=== PATIENT | male | born 1940 | race Caucasian/White ===

== ENCOUNTER 2017-01-29 08:00 | Outpatient (CLI) | payer MEDICARE, OTHER | END 2017-01-29 08:01 | disposition home or self-care (01) | DX: I10 Essential (primary) hypertension (principal); R05 Cough; I25.10 Atherosclerotic heart disease of native coronary artery without angina pectoris; J44.9 Chronic obstructive pulmonary disease, unspecified ==

== ENCOUNTER → 2017-04-15 | Outpatient (CLI) | payer MEDICARE, OTHER ==
[2017-04-16 11:56] LABS: TEST RESULT REPORT (())
== END ==
LOC: LAB.WCP 08:00
PROVIDERS: ATTEND Family Medicine
DX: R19.7 Diarrhea, unspecified (principal)
CPT/HCPCS: 36415; 81599; 83630; 87045; 87046; 87077; 87329; 87493

== ENCOUNTER 2017-10-07 08:00 | Outpatient (CLI) | payer MEDICARE, OTHER ==
[2017-10-07 12:47] LABS: HB2 TOTAL 16.1 g/dL; HEMOGLOBIN A1C 0.61 g/dL; HEMOGLOBIN A1C % 5.6 % (4.6-6.2)
[2017-10-07 13:03] LABS: ALBUMIN/GLOBULIN RATIO 1.7 (1.0-2.2); BILIRUBIN,TOTAL 1.1 mg/dL (0.2-1.0); CALCIUM 9.3 mg/dL (8.5-10.3); CREATININE 1.1 mg/dL (0.6-1.2); TOTAL PROTEIN 6.4 g/dL (6.7-8.2)
== END 2017-10-07 08:01 | disposition home or self-care (01) ==
LOC: LAB.WCP 08:00
PROVIDERS: ATTEND Family Medicine
DX: H91.92 Unspecified hearing loss, left ear (principal); E11.9 Type 2 diabetes mellitus without complications; I25.10 Atherosclerotic heart disease of native coronary artery without angina pectoris; I10 Essential (primary) hypertension
CPT/HCPCS: 36415; 80053; 82043; 83036

== ENCOUNTER 2018-03-12 15:59 | Emergency (ER) | payer MEDICARE, OTHER ==
--- NOTE | 2018-03-12 18:14 | ED Physician Documentation ---
History of Present Illness - Stated complaint Stated Complaint: HBP - Chief complaint Chief Complaint: Cardiac - History obtained from History obtained from: Patient, Family - History of Present Illness Timing: How many weeks ago (1) Pain level max: 0 Pain level now: 0 Improved by: Nothing Worsened by: Nothing - Additonal information Additional information: Patient is a 78-year-old male who presents to the emergency department stating that his blood pressure has been higher than usual over the past week. Does not have any specific complaints other than he "just does not feel right". Denies any chest pain, shortness of breath, nausea or vomiting. Denies any changes in his vision. Denies any numbness or tingling. Review of Systems Constitutional: denies: Fever, Chills Eyes: denies: Decreased vision, Photophobia Nose: denies: Rhinorrhea / runny nose, Congestion Throat: denies: Sore throat Cardiac: denies: Chest pain / pressure, Palpitations Respiratory: denies: Dyspnea, Cough GI: denies: Nausea, Vomiting, Diarrhea Skin: denies: Rash Musculoskeletal: denies: Neck pain, Back pain Neurologic: denies: Focal weakness, Numbness, Headache PD PAST MEDICAL HISTORY - Past Medical History Past Medical History: Yes Cardiovascular: Hypertension Respiratory: COPD GI: GERD - Present Medications Home Medications: Ambulatory Orders Medication Instructions Recorded Confirmed Albuterol Sulfate [Proair Hfa 8.5 gm 03/12/18 Inhaler] Aspirin [Children's Aspirin] 81 mg PO 03/12/18 Atorvastatin [Lipitor] 0 mg 03/12/18 Carvedilol 25 mg PO BID 03/12/18 03/12/18 Fluticasone [Flonase] 03/12/18 Fluticasone [Flonase] 1 sprays CHON DAILY 03/12/18 03/12/18 Fluticasone/Salmeterol [Advair 1 each 03/12/18 500-50 Diskus] Losartan Potassium 100 mg PO DAILY 03/12/18 03/12/18 Nitroglycerin 0.4 mg SL PRN 03/12/18 Pantoprazole [Protonix] 40 mg PO 03/12/18 guaiFENesin [Mucinex] 600 mg PO BID 03/12/18 03/12/18 metFORMIN [Glucophage] 500 mg PO BID 03/12/18 03/12/18 - Allergies Allergies/Adverse Reactions: Allergies Allergy/AdvReac Type Severity Reaction Status Date / Time ibuprofen [From Motrin] Allergy Hives Verified 03/12/18 16:25 - Living Situation Living Situation: reports: With family Living Arrangement: reports: At home - Social History Does the pt have substance abuse?: No - Family History Family history: reports: Non contributory PD ED PE NORMAL - Vitals Vital signs reviewed: Yes - General General: Alert and oriented X 3, No acute distress, Well developed/nourished - HEENT HEENT: Atraumatic, PERRL, Moist mucous membranes - Neck Neck: Supple, no meningeal sign - Cardiac Cardiac: RRR, Strong equal pulses - Respiratory Respiratory: No respiratory distress, Other (Minimal wheezing bilaterally) - Abdomen Abdomen: Soft, Non tender, Non distended - Derm Derm: Warm and dry, No rash - Extremities Extremities: No edema - Neuro Neuro: Alert and oriented X 3, sterilization specialist 2-12 intact, No motor deficit, No sensory deficit, Normal speech - Psych Psych: Normal mood, Normal affect Results - Vitals Vitals: Oxygen O2 Source Room air - EKG (time done) 1806 Rate: Rate (enter#) (72) Rhythm: NSR [place]: Normal Intervals: Normal [place] QRS: Normal Ischemia: Normal ST segments Computer interpretation: Agree with computer - Labs Labs: Laboratory Tests 03/12/18 03/12/18 03/12/18 18:13 18:13 18:13 WBC 8.4 RBC 4.57 L Hgb 15.0 Hct 44.5 MCV 97.2 H MCH 32.7 H MCHC 33.7 RDW 13.7 Plt Count 180 MPV 8.8 Neut # (Auto) 4.9 Lymph # (Auto) 1.8 [place] # (Auto) 0.7 Eos # (Auto) 0.8 H Baso # (Auto) 0.1 Absolute Nucleated RBC 0.00 Nucleated RBC % 0.0 Sodium 139 Potassium 3.3 L Chloride 101 Carbon Dioxide 30 Anion Gap 8.0 BUN 15 Creatinine 1.0 Estimated GFR (MDRD) 72 L Glucose 102 H Calcium 9.3 Total Bilirubin 1.2 H AST 19 ALT 15 Alkaline Phosphatase 52 Troponin I < 0.04 Total Protein 7.0 Albumin 4.3 Globulin 2.7 Albumin/Globulin Ratio 1.6 Lipase 48 PD MEDICAL DECISION MAKING - ED course Complexity details: reviewed old records, reviewed results, re-evaluated patient , considered differential, d/w patient ED course: Patient is a 78-year-old male with a long-standing history of hypertension. Is hypertensive in the emergency department tonight, upon review of his records he has had systolic blood pressures above 170 in the emergency department in the past. He is asymptomatic here. No acute findings on EKG or laboratory testing. No evidence of endorgan damage. We will have him follow-up with his doctor for further care. We will have him keep a log of his blood pressure at home so his doctor can better adjust his medication. Patient and family counseled regarding signs and symptoms for which I believe and urgent re- evaluation would be necessary. Patient with good understanding of and agreement to plan and is comfortable going home at this time This document was made in part using voice recognition software. While efforts are made to proofread this document, sound alike and grammatical errors may occur. - Sepsis Event Vital Signs: Oxygen O2 Source Room air Departure - Departure Disposition: 01 Home, Self Care Clinical Impression: Hypertension Qualifiers: Hypertension type: unspecified Qualified Code(s): I10 - Essential (primary) hypertension Condition: Good Instructions: ED HTN Established Follow-Up: Obinna Lopez MD [Primary Care Provider] - Within 1 week Comments: Make an appointment with your doctor for adjustment of your blood pressure medications. Return if you worsen Discharge Date/Time: 03/12/18 19:10
[2018-03-12 18:19] LABS: BASOPHILS # (AUTO) 0.1 10^3/uL (0.0-0.1); EOSINOPHILS # (AUTO) 0.8 10^3/uL (0.0-0.7); EOSINOPHILS % (AUTO) 9.6 %; LYMPHOCYTES # (AUTO) 1.8 10^3/uL (1.5-3.5); LYMPHOCYTES % (AUTO) 21.8 %; MEAN CORPUSCULAR HEMOGLOBIN 32.7 pg (27.0-31.0); MEAN CORPUSCULAR HGB CONC 33.7 g/dL (32.0-36.0); MEAN CORPUSCULAR VOLUME 97.2 fL (80.0-94.0); MEAN PLATELET VOLUME 8.8 fL (7.4-11.4); MONOCYTES # (AUTO) 0.7 10^3/uL (0.0-1.0); NEUTROPHILS # (AUTO) 4.9 10^3/uL (1.5-6.6); NEUTROPHILS % (AUTO) 58.6 %; PLT - PLATELET COUNT 180 10^3/uL (130-450); RED BLOOD COUNT 4.57 10^6/uL (4.70-6.10); RED CELL DISTRIBUTION WIDTH 13.7 % (12.0-15.0); WHITE BLOOD COUNT 8.4 x10^3/uL (4.8-10.8)
[2018-03-12 18:30] LABS: ALBUMIN 4.3 g/dL (3.2-5.5); ALBUMIN/GLOBULIN RATIO 1.6 (1.0-2.2); BILIRUBIN,TOTAL 1.2 mg/dL (0.2-1.0); CALCIUM 9.3 mg/dL (8.5-10.3)
[2018-03-12 19:10] VITALS: BP 192/96
== END 2018-03-12 19:10 | disposition home or self-care (01) ==
LOC: ED 15:59
DX: I10 Essential (primary) hypertension (principal); Z79.82 Long term (current) use of aspirin
CPT/HCPCS: 36415; 80053; 83690; 84484; 85025; 93005; 99284

== ENCOUNTER 2018-04-03 09:52 | Outpatient (CLI) | payer MEDICARE, OTHER ==
[2018-04-03 13:58] LABS: BASOPHILS # (AUTO) 0.1 10^3/uL (0.0-0.1); EOSINOPHILS # (AUTO) 0.7 10^3/uL (0.0-0.7); EOSINOPHILS % (AUTO) 10.6 %; HGB - HEMOGLOBIN 14.4 g/dL (14.0-18.0); LYMPHOCYTES # (AUTO) 2.2 10^3/uL (1.5-3.5); LYMPHOCYTES % (AUTO) 34.4 %; MEAN CORPUSCULAR HEMOGLOBIN 33.4 pg (27.0-31.0); MEAN CORPUSCULAR HGB CONC 34.9 g/dL (32.0-36.0); MEAN CORPUSCULAR VOLUME 95.7 fL (80.0-94.0); MEAN PLATELET VOLUME 9.4 fL (7.4-11.4); MONOCYTES # (AUTO) 0.7 10^3/uL (0.0-1.0); MONOCYTES % (AUTO) 11.3 %; NEUTROPHILS # (AUTO) 2.7 10^3/uL (1.5-6.6); NEUTROPHILS % (AUTO) 42.7 %; PLT - PLATELET COUNT 168 10^3/uL (130-450); RED BLOOD COUNT 4.32 10^6/uL (4.70-6.10); WHITE BLOOD COUNT 6.4 x10^3/uL (4.8-10.8)
[2018-04-03 14:21] LABS: CHOL/HDL RATIO 2.5 (<5.0); CHOLESTEROL 125 mg/dL; HDL CHOLESTEROL 50 mg/dL; LDL CHOLESTEROL,CALCULATED 39 mg/dL; LDL/HDL RATIO 0.8 (<3.6); VLDL CHOLESTEROL 36 mg/dL
[2018-04-03 19:57] LABS: HB2 TOTAL 14.9 g/dL; HEMOGLOBIN A1C 0.6 g/dL; HEMOGLOBIN A1C % 5.8 % (4.6-6.2)
== END 2018-04-03 09:53 | disposition home or self-care (01) ==
LOC: LAB.WCP 09:52
PROVIDERS: ATTEND Family Medicine
DX: N40.0 Benign prostatic hyperplasia without lower urinary tract symptoms (principal); I25.10 Atherosclerotic heart disease of native coronary artery without angina pectoris; E11.9 Type 2 diabetes mellitus without complications; R73.03 Prediabetes
CPT/HCPCS: 36415; 80061; 83036; 83721; 85025

== ENCOUNTER 2018-10-12 08:00 | Outpatient (CLI) | payer MEDICARE, OTHER ==
[2018-10-12 13:07] LABS: BASOPHILS # (AUTO) 0.1 10^3/uL (0.0-0.1); BASOPHILS % (AUTO) 0.8 %; EOSINOPHILS # (AUTO) 0.7 10^3/uL (0.0-0.7); EOSINOPHILS % (AUTO) 9.2 %; HGB - HEMOGLOBIN 13.8 g/dL (14.0-18.0); LYMPHOCYTES # (AUTO) 2.2 10^3/uL (1.5-3.5); LYMPHOCYTES % (AUTO) 28.8 %; MEAN CORPUSCULAR HEMOGLOBIN 33.5 pg (27.0-31.0); MEAN CORPUSCULAR HGB CONC 35.1 g/dL (32.0-36.0); MEAN CORPUSCULAR VOLUME 95.3 fL (80.0-94.0); MEAN PLATELET VOLUME 9.3 fL (7.4-11.4); MONOCYTES # (AUTO) 0.8 10^3/uL (0.0-1.0); MONOCYTES % (AUTO) 10.5 %; NEUTROPHILS # (AUTO) 3.9 10^3/uL (1.5-6.6); NEUTROPHILS % (AUTO) 50.7 %; PLT - PLATELET COUNT 187 10^3/uL (130-450); RED BLOOD COUNT 4.12 10^6/uL (4.70-6.10); RED CELL DISTRIBUTION WIDTH 13.4 % (12.0-15.0); WHITE BLOOD COUNT 7.6 x10^3/uL (4.8-10.8)
[2018-10-12 13:26] LABS: ALBUMIN 3.8 g/dL (3.2-5.5); ALBUMIN/GLOBULIN RATIO 1.5 (1.0-2.2); ALKALINE PHOSPHATASE 46 IU/L (42-121); ALT ALANINE AMINOTRANSFERASE 14 IU/L (10-60); AST ASPARTATE AMINOTRANSFERASE 20 IU/L (10-42); BUN - BLOOD UREA NITROGEN 23 mg/dL (6-20); CALCIUM 8.9 mg/dL (8.5-10.3); CARBON DIOXIDE - CO2 28 mmol/L (21-32); CHLORIDE 103 mmol/L (101-111); CHOL/HDL RATIO 2.7 (<5.0); CHOLESTEROL 127 mg/dL; CREATININE 1.3 mg/dL (0.6-1.2); GFR - MDRD 54 (>89); GLUCOSE 119 mg/dL (70-100); HDL CHOLESTEROL 47 mg/dL; LDL CHOLESTEROL,CALCULATED 53 mg/dL; LDL/HDL RATIO 1.1 (<3.6); SODIUM 139 mmol/L (135-145); TOTAL PROTEIN 6.4 g/dL (6.7-8.2); VLDL CHOLESTEROL 27 mg/dL
[2018-10-12 13:41] LABS: HB2 TOTAL 14.7 g/dL; HEMOGLOBIN A1C 0.56 g/dL; HEMOGLOBIN A1C % 5.6 % (4.6-6.2)
== END 2018-10-12 23:59 | disposition home or self-care (01) ==
LOC: LAB.WCP 08:00
PROVIDERS: ATTEND Family Medicine
DX: I25.10 Atherosclerotic heart disease of native coronary artery without angina pectoris (principal); R73.03 Prediabetes; E78.5 Hyperlipidemia, unspecified
CPT/HCPCS: 36415; 80053; 80061; 83036; 83721; 85025

== ENCOUNTER 2019-01-28 09:46 | Outpatient (CLI) | payer MEDICARE, OTHER ==
--- NOTE | 2019-01-28 13:45 | XRAY Report ---
Reason: LUMBAR RADICULOPATHY Procedure Date: 01/28/2019 Accession Number: [id number] / [id number] Procedure: WCP - Lumbar Spine 2 View CPT Code: FULL RESULT: EXAM: LUMBOSACRAL SPINE RADIOGRAPHY EXAM DATE: 01/28/2019 09:57 AM. CLINICAL HISTORY: Lumbar radiculopathy. COMPARISONS: None. TECHNIQUE: 2 views. FINDINGS: Alignment: Normal. No spondylolisthesis or scoliosis. Bones: Five [id number] lumbar vertebral bodies are present. No fractures or bone lesions. Disks: There is relative maintenance of disk height with variable amounts of mild to moderate anterior and lateral marginal osteophytosis greatest at the L1-L2 and L2-L3 levels. Facets: No degenerative changes. Sacroiliac Joints: Unremarkable. Soft Tissues: Normal. The visualized bowel gas pattern is normal. Moderate stool burden. Clips in the right upper quadrant from prior cholecystectomy. IMPRESSION: Degenerative disk osteophytosis greatest at L1-L2 and L2-L3. RADIA
== END 2019-01-28 09:47 | disposition home or self-care (01) ==
LOC: DI.WCP 09:46
PROVIDERS: ATTEND Family Medicine
DX: M51.36 Other intervertebral disc degeneration, lumbar region (principal)
CPT/HCPCS: 72100

== ENCOUNTER 2019-06-28 08:00 | Outpatient (CLI) | payer MEDICARE, OTHER ==
[2019-06-28 13:04] LABS: ALBUMIN 3.9 g/dL (3.2-5.5); ALBUMIN/GLOBULIN RATIO 1.4 (1.0-2.2); CALCIUM 9.1 mg/dL (8.5-10.3); CREATININE 1.4 mg/dL (0.6-1.2); TOTAL PROTEIN 6.6 g/dL (6.7-8.2)
[2019-06-28 13:27] LABS: HB2 TOTAL 14.9 g/dL; HEMOGLOBIN A1C 0.54 g/dL; HEMOGLOBIN A1C % 5.5 % (4.6-6.2)
[2019-06-28 13:54] LABS: CREATININE,URINE 458.8 mg/dL; MICROALBUM/CREATININE RATIO,UR 69.7 ug/mg (<30.0)
== END 2019-06-28 23:59 | disposition home or self-care (01) ==
LOC: LAB.WCP 08:00
PROVIDERS: ATTEND Family Medicine
DX: I25.10 Atherosclerotic heart disease of native coronary artery without angina pectoris (principal); R73.03 Prediabetes; I10 Essential (primary) hypertension; E78.5 Hyperlipidemia, unspecified
CPT/HCPCS: 36415; 80053; 82043; 82570; 83036

== ENCOUNTER 2020-02-24 08:00 | Outpatient (CLI) | payer MEDICARE, OTHER ==
[2020-02-24 11:50] LABS: BASOPHILS # (AUTO) 0.1 10^3/uL (0.0-0.1); EOSINOPHILS # (AUTO) 0.6 10^3/uL (0.0-0.7); EOSINOPHILS % (AUTO) 8.7 %; HGB - HEMOGLOBIN 13.4 g/dL (14.0-18.0); LYMPHOCYTES # (AUTO) 2.1 10^3/uL (1.5-3.5); LYMPHOCYTES % (AUTO) 28.6 %; MEAN CORPUSCULAR HEMOGLOBIN 32.1 pg (27.0-31.0); MEAN CORPUSCULAR HGB CONC 32.7 g/dL (32.0-36.0); MEAN CORPUSCULAR VOLUME 98.3 fL (80.0-94.0); MEAN PLATELET VOLUME 10.8 fL (7.4-11.4); MONOCYTES # (AUTO) 0.7 10^3/uL (0.0-1.0); MONOCYTES % (AUTO) 10.2 %; NEUTROPHILS # (AUTO) 3.7 10^3/uL (1.5-6.6); NEUTROPHILS % (AUTO) 51.1 %; PLT - PLATELET COUNT 193 10^3/uL (130-450); RED BLOOD COUNT 4.17 10^6/uL (4.70-6.10); RED CELL DISTRIBUTION WIDTH 13.2 % (12.0-15.0); WHITE BLOOD COUNT 7.2 x10^3/uL (4.8-10.8)
[2020-02-24 12:11] LABS: HB2 TOTAL 14.1 g/dL; HEMOGLOBIN A1C 0.56 g/dL; HEMOGLOBIN A1C % 5.8 % (4.6-6.2)
[2020-02-24 12:22] LABS: ALBUMIN/GLOBULIN RATIO 1.5 (1.0-2.2); ALKALINE PHOSPHATASE 59 IU/L (42-121); ALT ALANINE AMINOTRANSFERASE 18 IU/L (10-60); AST ASPARTATE AMINOTRANSFERASE 20 IU/L (10-42); BUN - BLOOD UREA NITROGEN 23 mg/dL (6-20); CALCIUM 9.4 mg/dL (8.5-10.3); CARBON DIOXIDE - CO2 30 mmol/L (21-32); CHLORIDE 104 mmol/L (101-111); CHOL/HDL RATIO 3.1 (<5.0); CHOLESTEROL 156 mg/dL; CREATININE 1.5 mg/dL (0.6-1.2); GLUCOSE 134 mg/dL (70-100); HDL CHOLESTEROL 50 mg/dL; LDL CHOLESTEROL,CALCULATED 58 mg/dL; LDL/HDL RATIO 1.2 (<3.6); SODIUM 140 mmol/L (135-145); TOTAL PROTEIN 6.6 g/dL (6.7-8.2); VLDL CHOLESTEROL 48 mg/dL
[2020-02-24 12:23] LABS: CREATININE,URINE 191.8 mg/dL; MICROALBUM/CREATININE RATIO,UR 58.9 ug/mg (<30.0); MICROALBUMIN,URINE 11.3 mg/dL (0-300.0)
== END 2020-02-24 23:59 | disposition home or self-care (01) ==
LOC: LAB.WCP 08:00
PROVIDERS: ATTEND Family Medicine
DX: I12.9 Hypertensive chronic kidney disease with stage 1 through stage 4 chronic kidney disease, or unspecified chronic kidney disease (principal); E11.22 Type 2 diabetes mellitus with diabetic chronic kidney disease; N18.9 Chronic kidney disease, unspecified; I25.10 Atherosclerotic heart disease of native coronary artery without angina pectoris; N40.0 Benign prostatic hyperplasia without lower urinary tract symptoms
CPT/HCPCS: 36415; 80053; 80061; 82043; 82570; 83036; 83721; 84443; 85025

== ENCOUNTER 2020-03-06 12:52 | Outpatient (CLI) | payer MEDICARE, OTHER ==
[2020-03-06] MEDS ORDERED: ALBUTEROL 1 PUFF INH STA (14:37)
== END 2020-03-06 12:53 | disposition home or self-care (01) ==
LOC: RT 12:52
PROVIDERS: ATTEND Family Medicine
DX: J44.9 Chronic obstructive pulmonary disease, unspecified (principal)
CPT/HCPCS: 94060; 94729

== ENCOUNTER 2020-11-13 09:02 | Outpatient (CLI) | payer MEDICARE, OTHER ==
[2020-11-13 12:24] LABS: BASOPHILS # (AUTO) 0.1 10^3/uL (0.0-0.1); EOSINOPHILS # (AUTO) 0.4 10^3/uL (0.0-0.7); HCT - HEMATOCRIT 40.7 % (42.0-52.0); HGB - HEMOGLOBIN 13.6 g/dL (14.0-18.0); LYMPHOCYTES # (AUTO) 2.1 10^3/uL (1.5-3.5); LYMPHOCYTES % (AUTO) 30.2 %; MEAN CORPUSCULAR HEMOGLOBIN 33.3 pg (27.0-31.0); MEAN CORPUSCULAR HGB CONC 33.4 g/dL (32.0-36.0); MEAN CORPUSCULAR VOLUME 99.8 fL (80.0-94.0); MEAN PLATELET VOLUME 10.9 fL (7.4-11.4); MONOCYTES # (AUTO) 0.7 10^3/uL (0.0-1.0); MONOCYTES % (AUTO) 10.8 %; NEUTROPHILS # (AUTO) 3.5 10^3/uL (1.5-6.6); NEUTROPHILS % (AUTO) 51.6 %; PLT - PLATELET COUNT 197 10^3/uL (130-450); RED BLOOD COUNT 4.08 10^6/uL (4.70-6.10); RED CELL DISTRIBUTION WIDTH 13.1 % (12.0-15.0); WHITE BLOOD COUNT 6.9 x10^3/uL (4.8-10.8)
== END 2020-11-13 23:59 | disposition home or self-care (01) ==
LOC: LAB.WCP 09:02
PROVIDERS: ATTEND Family Medicine
DX: J44.9 Chronic obstructive pulmonary disease, unspecified (principal)
CPT/HCPCS: 36415; 85025

== ENCOUNTER 2021-01-09 09:35 | Outpatient (CLI) | payer MEDICARE, OTHER ==
[2021-01-09 12:01] LABS: CREATININE,URINE 310.8 mg/dL; MICROALBUM/CREATININE RATIO,UR 6.8 ug/mg (<30.0); MICROALBUMIN,URINE 2.1 mg/dL (0-300.0)
[2021-01-09 12:03] LABS: ALBUMIN 4.1 g/dL (3.2-5.5); ALBUMIN/GLOBULIN RATIO 1.7 (1.0-2.2); ALKALINE PHOSPHATASE 51 IU/L (42-121); ALT ALANINE AMINOTRANSFERASE 16 IU/L (10-60); AST ASPARTATE AMINOTRANSFERASE 21 IU/L (10-42); BUN - BLOOD UREA NITROGEN 20 mg/dL (6-20); CALCIUM 9.3 mg/dL (8.5-10.3); CARBON DIOXIDE - CO2 27 mmol/L (21-32); CHLORIDE 106 mmol/L (101-111); CHOL/HDL RATIO 3.3 (<5.0); CHOLESTEROL 151 mg/dL; CREATININE 1.3 mg/dL (0.6-1.2); GFR - MDRD 53 (>89); GLUCOSE 119 mg/dL (70-100); HDL CHOLESTEROL 46 mg/dL; LDL CHOLESTEROL,CALCULATED 76 mg/dL; LDL/HDL RATIO 1.7 (<3.6); POTASSIUM 3.8 mmol/L (3.5-5.0); SODIUM 141 mmol/L (135-145); TOTAL PROTEIN 6.5 g/dL (6.7-8.2); TRIGLYCERIDES 147 mg/dL; VLDL CHOLESTEROL 29 mg/dL
[2021-01-09 12:07] LABS: THYROID STIMULATING HORMONE 1.28 uIU/mL (0.34-5.60)
[2021-01-09 13:05] LABS: ESTIMATED AVERAGE GLUCOSE 123 mg/dL (70-100); HEMOGLOBIN A1c% 5.9 % (4.27-6.07)
== END 2021-01-09 23:59 | disposition home or self-care (01) ==
LOC: LAB.WCP 09:35
PROVIDERS: ATTEND Internal Medicine
DX: I10 Essential (primary) hypertension (principal); E11.9 Type 2 diabetes mellitus without complications
CPT/HCPCS: 36415; 80053; 80061; 82043; 82570; 83036; 83721; 84443

== ENCOUNTER 2021-07-25 14:03 | Outpatient (CLI) | payer MEDICARE, OTHER ==
--- NOTE | 2021-07-25 16:52 | DEXA Report ---
PROCEDURE: Dexa Spine and/or Hip INDICATIONS: DISORDERS OF BONE DENSITY AND STRUCTURE TECHNIQUE: Dual energy x-ray absorptiometry (DXA) was performed on a [employer] System. Regions measur ed are the AP Spine, femoral neck, and if needed forearm. COMPARISON: None. FINDINGS: Lumbar Spine: Bone Mineral Density 1.477 g/cm/cm,T score 2.1, normal Left Hip: Bone Mineral Density 1.052 g/cm/cm,T score -0.3, normal Left Femoral Neck: Bone Mineral Density 0.890 g/cm/cm, T score -1.4, mild osteopenia (T score greater or equal to -1.0: NORMAL) (T score from -1.1 to -2.4: OSTEOPENIA) (T score less than or equal to -2.5 to: OSTEOPOROSIS) Impression: Mild femoral neck osteopenia. Patients with diagnosis of osteoporosis or osteopenia should have regular bone mineral density assess ment. For those eligible for Medicare, routine testing is allowed once every 2 years. Testing frequ ency can be increased for patients who have rapidly progressing disease or for those who are receivin g medical therapy to restore bone mass. Reviewed by: Celeste Ocampo MD on 07/25/2021 4:50 PM PST Approved by: Celeste Ocampo MD on 07/25/2021 4:50 PM PST Station ID: [id number]
== END 2021-07-25 14:04 | disposition home or self-care (01) ==
LOC: DI 14:03
PROVIDERS: ATTEND Internal Medicine
DX: M85.88 Other specified disorders of bone density and structure, other site (principal)

== ENCOUNTER 2021-07-30 08:00 | Outpatient (CLI) | payer MEDICARE, OTHER ==
[2021-07-30 18:16] LABS: BASOPHILS # (AUTO) 0.1 10^3/uL (0.0-0.1); EOSINOPHILS # (AUTO) 0.4 10^3/uL (0.0-0.7); EOSINOPHILS % (AUTO) 5.6 %; HCT - HEMATOCRIT 41.2 % (42.0-52.0); HGB - HEMOGLOBIN 13.6 g/dL (14.0-18.0); LYMPHOCYTES # (AUTO) 1.2 10^3/uL (1.5-3.5); LYMPHOCYTES % (AUTO) 19.4 %; MEAN CORPUSCULAR HEMOGLOBIN 32.7 pg (27.0-31.0); MEAN PLATELET VOLUME 10.7 fL (7.4-11.4); MONOCYTES # (AUTO) 0.7 10^3/uL (0.0-1.0); MONOCYTES % (AUTO) 11.7 %; NEUTROPHILS # (AUTO) 3.9 10^3/uL (1.5-6.6); PLT - PLATELET COUNT 194 10^3/uL (130-450); RED BLOOD COUNT 4.16 10^6/uL (4.70-6.10); RED CELL DISTRIBUTION WIDTH 13.5 % (12.0-15.0); WHITE BLOOD COUNT 6.3 x10^3/uL (4.8-10.8)
[2021-07-30 18:31] LABS: ALBUMIN/GLOBULIN RATIO 1.5 (1.0-2.2); CALCIUM 9.6 mg/dL (8.5-10.3); CREATININE 1.2 mg/dL (0.6-1.2); POTASSIUM 3.9 mmol/L (3.5-5.0); TOTAL PROTEIN 6.6 g/dL (6.7-8.2)
[2021-07-30 21:13] LABS: ESTIMATED AVERAGE GLUCOSE 108 mg/dL (70-100); HEMOGLOBIN A1c% 5.4 % (4.27-6.07)
== END 2021-07-30 23:59 | disposition home or self-care (01) ==
LOC: LAB.WCP 08:00
PROVIDERS: ATTEND Nurse Practitioner
DX: R06.02 Shortness of breath (principal); R73.03 Prediabetes
CPT/HCPCS: 36415; 80053; 83036; 85025

== ENCOUNTER 2021-10-31 10:07 | Outpatient (CLI) | payer MEDICARE, OTHER | END 2021-10-31 10:08 | disposition home or self-care (01) | LOC: DI 10:07 | PROVIDERS: ATTEND Nurse Practitioner | DX: R06.02 Shortness of breath (principal); R60.0 Localized edema; I51.7 Cardiomegaly | CPT/HCPCS: 93306 ==

== ENCOUNTER 2021-10-31 10:09 | Outpatient (CLI) | payer MEDICARE, OTHER ==
--- NOTE | 2021-10-31 15:33 | Ultrasound Report ---
PROCEDURE: Head or Neck Soft Tissue INDICATIONS: SUBMANDIBULAR LYMPHADENOPATHY TECHNIQUE: Real time scanning was performed of the neck region of interest, with image documentation . COMPARISON: None. FINDINGS: Right submandibular gland measures 4.1 x 1.7 x 3.3 cm in size. Left submandibular gland measures 3.6 x 1.6 x 3.2 cm in size. Bilateral submandibular glands are homogeneous in echotexture. No solid appea ring soft tissue mass or fluid collection is seen. No metastases soft tissue lymphadenopathy by size criteria. IMPRESSION: Normal-appearing bilateral submandibular glands. No solid soft tissue mass or fluid collection. No ne ck soft tissue lymphadenopathy. Reviewed by: Martin Cardenas MD on 10/31/2021 3:31 PM PST Approved by: Martin Cardenas MD on 10/31/2021 3:31 PM PST Station ID: [id number]
== END 2021-10-31 10:10 | disposition home or self-care (01) ==
LOC: DI 10:09
PROVIDERS: ATTEND Nurse Practitioner
DX: R59.0 Localized enlarged lymph nodes (principal); R06.02 Shortness of breath; R60.0 Localized edema; I51.7 Cardiomegaly
CPT/HCPCS: 93306

== ENCOUNTER 2022-01-24 08:00 | Outpatient (CLI) | payer MEDICARE, OTHER | END 2022-01-25 17:19 | disposition home or self-care (01) | LOC: LAB.N 08:00 | PROVIDERS: ATTEND Nurse Practitioner | DX: U07.1 COVID-19 (principal) ==

== ENCOUNTER 2022-02-01 13:13 | Emergency (ER) | payer MEDICARE, OTHER ==
[2022-02-01 13:27] VITALS: BP 166/90
--- NOTE | 2022-02-01 14:46 | ED Physician Documentation ---
PD HPI URI - Stated complaint Stated Complaint: C+ COUGH - Chief complaint Chief Complaint: General - History obtained from History obtained from: Patient - History of Present Illness Timing details: Abrupt onset, Still present (still having some cough and congestion but much better. He is wondering why he did not get Rx of Paxlovid from [facility] like his wiefe did, and she is more improved. He is wondering about it now.) Associated symptoms: Nasal congestion, Dry cough, Dyspnea (his COPD has flared with the illness) Recently seen: Clinic (walk in 10 days ago after positive home test. They did confirmatory test and when positive next day, he was called by [facility] and was told test positive, but did not get a Rx. He does not know why. His got Rx for Paxlovid.) Review of Systems Constitutional: denies: Fever, Chills Nose: reports: Congestion. denies: Rhinorrhea / runny nose Throat: denies: Sore throat Cardiac: denies: Chest pain / pressure Respiratory: reports: Dyspnea, Cough, Wheezing PD PAST MEDICAL HISTORY - Past Medical History Cardiovascular: Hypertension Respiratory: COPD GI: GERD - Present Medications Home Medications: Ambulatory Orders Medication Instructions Recorded Confirmed Albuterol Sulfate [Proair Hfa 8.5 gm 03/12/18 Inhaler] Aspirin [Children's Aspirin] 81 mg PO 03/12/18 Atorvastatin [Lipitor] 0 mg 03/12/18 Fluticasone [Flonase] 03/12/18 Fluticasone [Flonase] 1 sprays CHON DAILY 03/12/18 03/12/18 Fluticasone/Salmeterol [Advair 1 each 03/12/18 500-50 Diskus] Losartan Potassium 100 mg PO DAILY 03/12/18 03/12/18 Nitroglycerin 0.4 mg SL PRN 03/12/18 Pantoprazole [Protonix] 40 mg PO 03/12/18 carvediloL [Carvedilol] 25 mg PO BID 03/12/18 03/12/18 guaiFENesin [Mucinex] 600 mg PO BID 03/12/18 03/12/18 metFORMIN [Glucophage] 500 mg PO BID 03/12/18 03/12/18 Doxycycline Hyclate 100 mg PO BID 7 Days #14 cap 02/01/22 dexAMETHasone [Decadron] 4 mg PO DAILY #5 tablet 02/01/22 - Allergies Allergies/Adverse Reactions: Allergies Allergy/AdvReac Type Severity Reaction Status Date / Time ibuprofen [From Motrin] Allergy Hives Verified 02/01/22 13:26 - Social History Does the pt smoke?: No Smoking Status: Never smoker Does the pt have substance abuse?: No PD ED PE NORMAL - Vitals Vital signs reviewed: Yes - General General: Alert and oriented X 3, No acute distress, Well developed/nourished - HEENT HEENT: Moist mucous membranes, Pharynx benign - Neck Neck: Supple, no meningeal sign, No adenopathy - Cardiac Cardiac: RRR, No murmur - Respiratory Respiratory: No respiratory distress. No: Clear bilaterally (exp wheezing scattered) - Abdomen Abdomen: Soft, Non tender Results - Vitals Vitals: Oxygen O2 Source Room air PD MEDICAL DECISION MAKING - ED course Complexity details: considered differential (unclear why he did not get Rx for Paxlovid. He has COPD and would have benefited likely. He is on atorvastatin, so that might have been the reason for not Rx, though it is just a matter of him having held the statin for 6-7 days while on the Paxlovid meds. ), d/w patient Departure - Departure Disposition: 01 Home, Self Care Clinical Impression: COVID-19, Asthma exacerbation in COPD Condition: Stable Record reviewed to determine appropriate education?: Yes Follow-Up: Dereck Katz MD [Primary Care Provider] - Prescriptions: dexAMETHasone [Decadron] 4 mg PO DAILY #5 tablet Doxycycline Hyclate 100 mg PO BID 7 Days #14 cap Comments: Your test for COVID could stay positive even after the active virus are less because of "remnant" parts of the virus still present in the nasal passage. You time-garcia are past the point of benefit from antiviral medicines. You would benefit from treatment of your exacerbation in the COPD with 5 to 7- day course of Decadron steroids and doxycycline antibiotic. I sent your prescription to the pharmacy. Discharge Date/Time: 02/01/22 15:38
== END 2022-02-01 15:38 | disposition home or self-care (01) ==
LOC: ED 13:13
DX: U07.1 COVID-19 (principal); J44.1 Chronic obstructive pulmonary disease with (acute) exacerbation; I10 Essential (primary) hypertension
CPT/HCPCS: 99282; 99283

== ENCOUNTER 2022-02-12 11:57 | Outpatient (CLI) | payer MEDICARE, OTHER ==
[2022-02-12 17:44] LABS: BASOPHILS % (AUTO) 0.2 %; EOSINOPHILS # (AUTO) 0.3 10^3/uL (0.0-0.7); EOSINOPHILS % (AUTO) 3.1 %; HCT - HEMATOCRIT 38.2 % (42.0-52.0); HGB - HEMOGLOBIN 13.1 g/dL (14.0-18.0); LYMPHOCYTES # (AUTO) 1.9 10^3/uL (1.5-3.5); LYMPHOCYTES % (AUTO) 22.4 %; MEAN CORPUSCULAR HGB CONC 34.3 g/dL (32.0-36.0); MEAN CORPUSCULAR VOLUME 96.2 fL (80.0-94.0); MEAN PLATELET VOLUME 11.4 fL (7.4-11.4); MONOCYTES # (AUTO) 1.1 10^3/uL (0.0-1.0); MONOCYTES % (AUTO) 13.6 %; NEUTROPHILS % (AUTO) 60.1 %; PLT - PLATELET COUNT 153 10^3/uL (130-450); RED BLOOD COUNT 3.97 10^6/uL (4.70-6.10); RED CELL DISTRIBUTION WIDTH 13.2 % (12.0-15.0); WHITE BLOOD COUNT 8.3 x10^3/uL (4.8-10.8)
[2022-02-12 18:06] LABS: ALBUMIN 3.4 g/dL (3.2-5.5); ALBUMIN/GLOBULIN RATIO 1.4 (1.0-2.2); ALKALINE PHOSPHATASE 54 IU/L (42-121); ALT ALANINE AMINOTRANSFERASE 16 IU/L (10-60); AST ASPARTATE AMINOTRANSFERASE 19 IU/L (10-42); BILIRUBIN,TOTAL 1.3 mg/dL (0.2-1.0); BUN - BLOOD UREA NITROGEN 21 mg/dL (6-20); CALCIUM 9.3 mg/dL (8.5-10.3); CARBON DIOXIDE - CO2 27 mmol/L (21-32); CHLORIDE 104 mmol/L (101-111); CHOL/HDL RATIO 2.7 (<5.0); CHOLESTEROL 150 mg/dL; CREATININE 1.2 mg/dL (0.6-1.2); GFR - MDRD 58 (>89); GLUCOSE 106 mg/dL (70-100); HDL CHOLESTEROL 56 mg/dL; LDL CHOLESTEROL,CALCULATED 75 mg/dL; LDL/HDL RATIO 1.3 (<3.6); POTASSIUM 3.7 mmol/L (3.5-5.0); SODIUM 138 mmol/L (135-145); TOTAL PROTEIN 5.9 g/dL (6.7-8.2); TRIGLYCERIDES 93 mg/dL; VLDL CHOLESTEROL 19 mg/dL
[2022-02-12 18:10] LABS: CREATININE,URINE 208.1 mg/dL; MICROALBUM/CREATININE RATIO,UR 9.1 ug/mg (<30.0); MICROALBUMIN,URINE 1.9 mg/dL (0-300.0)
[2022-02-12 18:14] LABS: THYROID STIMULATING HORMONE 1.22 uIU/mL (0.34-5.60)
[2022-02-12 21:26] LABS: ESTIMATED AVERAGE GLUCOSE 117 mg/dL (70-100); HEMOGLOBIN A1c% 5.7 % (4.27-6.07)
== END 2022-02-12 11:58 | disposition home or self-care (01) ==
LOC: LAB.N 11:57
PROVIDERS: ATTEND Internal Medicine
DX: I25.10 Atherosclerotic heart disease of native coronary artery without angina pectoris (principal); R73.03 Prediabetes; I49.3 Ventricular premature depolarization
CPT/HCPCS: 36415; 80053; 80061; 82043; 82570; 83036; 83721; 84443; 85025

== ENCOUNTER 2022-10-07 09:09 | Outpatient (CLI) | payer MEDICARE, OTHER ==
[2022-10-07 12:26] LABS: MICROALBUM/CREATININE RATIO,UR 78.7 ug/mg (<30.0); MICROALBUMIN,URINE 12.9 mg/dL (0-300.0)
[2022-10-07 13:11] LABS: ALBUMIN 3.8 g/dL (3.2-5.5); ALBUMIN/GLOBULIN RATIO 1.5 (1.0-2.2); ALKALINE PHOSPHATASE 55 IU/L (42-121); ALT ALANINE AMINOTRANSFERASE 13 IU/L (10-60); AST ASPARTATE AMINOTRANSFERASE 18 IU/L (10-42); BILIRUBIN,TOTAL 1.3 mg/dL (0.2-1.0); BUN - BLOOD UREA NITROGEN 16 mg/dL (6-20); CALCIUM 9.2 mg/dL (8.5-10.3); CARBON DIOXIDE - CO2 29 mmol/L (21-32); CHLORIDE 105 mmol/L (101-111); CHOLESTEROL 140 mg/dL; CREATININE 1.3 mg/dL (0.6-1.2); GFR - MDRD 53 (>89); GLUCOSE 97 mg/dL (70-100); HDL CHOLESTEROL 46 mg/dL; LDL CHOLESTEROL,CALCULATED 57 mg/dL; LDL/HDL RATIO 1.2 (<3.6); POTASSIUM 3.6 mmol/L (3.5-5.0); SODIUM 141 mmol/L (135-145); TOTAL PROTEIN 6.3 g/dL (6.7-8.2); TRIGLYCERIDES 186 mg/dL; VLDL CHOLESTEROL 37 mg/dL
[2022-10-07 13:15] LABS: ESTIMATED AVERAGE GLUCOSE 117 mg/dL (70-100); HEMOGLOBIN A1c% 5.7 % (4.27-6.07)
== END 2022-10-07 09:10 | disposition home or self-care (01) ==
LOC: LAB.N 09:09
PROVIDERS: ATTEND Internal Medicine
DX: E78.5 Hyperlipidemia, unspecified (principal); R73.03 Prediabetes
CPT/HCPCS: 36415; 80053; 80061; 82043; 82570; 83036; 83721

== ENCOUNTER 2023-02-25 11:45 | Outpatient (CLI) | payer MEDICARE, OTHER ==
[2023-02-25 17:47] LABS: CALCIUM 8.5 mg/dL (8.5-10.3); CREATININE 1.2 mg/dL (0.6-1.2); POTASSIUM 3.3 mmol/L (3.5-5.0)
[2023-02-25 18:03] LABS: CREATININE,URINE 379.3 mg/dL; MICROALBUM/CREATININE RATIO,UR 25.3 ug/mg (<30.0); MICROALBUMIN,URINE 9.6 mg/dL (0-300.0)
[2023-02-25 21:07] LABS: ESTIMATED AVERAGE GLUCOSE 117 mg/dL (70-100); HEMOGLOBIN A1c% 5.7 % (4.27-6.07)
== END 2023-02-25 11:46 | disposition home or self-care (01) ==
LOC: LAB.N 11:45
PROVIDERS: ATTEND Internal Medicine
DX: R73.03 Prediabetes (principal)
CPT/HCPCS: 36415; 80048; 82043; 82570; 83036

== ENCOUNTER 2023-03-06 09:41 | Outpatient (CLI) | payer MEDICARE, OTHER ==
--- NOTE | 2023-03-06 12:31 | XRAY Report ---
PROCEDURE: Knee 2 View BILAT INDICATIONS: KNEE JOINT PAIN LESS THAN 3 MONTHS BILATERAL TECHNIQUE: 2 views of the each knee(s) were acquired. COMPARISON: None. FINDINGS: Bones: No fractures or dislocations. No suspicious bony lesions. Mild tricompartmental osteoarthrit ic bilaterally. Soft tissues: Moderate right and mild left knee joint effusions. No suspicious soft tissue calcifica tions or masses. IMPRESSION: 1. Mild tricompartment osteoarthritis bilaterally. 2. Bilateral knee joint effusions. Reviewed by: Rowena Mckeon MD on 03/06/2023 12:30 PM PDT Approved by: oRwena Mckeon MD on 03/06/2023 12:30 PM PDT Station ID: [id number]
== END 2023-03-06 09:42 | disposition home or self-care (01) ==
LOC: DI.N 09:41
PROVIDERS: ATTEND Internal Medicine
DX: M17.0 Bilateral primary osteoarthritis of knee (principal); M25.461 Effusion, right knee; M25.462 Effusion, left knee

== ENCOUNTER 2023-03-11 10:24 | Outpatient (CLI) | payer MEDICARE, OTHER ==
--- NOTE | 2023-03-11 16:17 | MRI Report ---
PROCEDURE: KNEE WO - RT INDICATIONS: INSTABILITY OF RIGHT KNEE TECHNIQUE: Noncontrast sagittal PD fast spin echo and T2 fast spin echo with fat saturation, sagittal 3-D gradie nt sequence with fat saturation; coronal T1 spin echo and PD fast spin echo with fat saturation, and axial PD fast spin echo with fat saturation through the knee. COMPARISON: None. FINDINGS: Image quality: Excellent. Menisci: There is peripheral displacement of medial meniscus bowing medial collateral ligament. Compl ex oblique tear involving posterior horn of medial meniscus is seen extending to both superior and in ferior articulating surfaces. The lateral meniscus is intact. Low to moderate grade partial-thickness tear involving posterior medial meniscal root ligament is noted. Cruciate ligaments: The anterior and posterior cruciate ligaments appear intact. Medial structures: The medial collateral ligament appears thickened with surrounding soft tissue maximus ma. The posterior oblique ligament, semimembranosus tendon insertions, and oblique popliteal ligamen t, and meniscocapsular junction appear intact. Visualized portions of the pes anserinus tendons appe ar normal. No abnormal bursal fluid. Lateral structures: The lateral collateral ligament is thickened. The long and short heads of the bi ceps femoris tendon appear intact. The popliteus tendon appears normal; the popliteofibular ligament appears intact. Iliotibial band appears normal. Anterior structures: The quadriceps and patellar tendons appear intact. Patellar alignment is mira l. No femoral trochlear dysplasia or ventral trochlear prominence. No edema in the infrapatellar fa t pad. Bones and cartilage: Moderate tricompartmental osteoarthritis and chondromalacia is seen most notably in medial femoral tibial compartment with joint space narrowing, subchondral sclerosis and marginal osteophyte formation. Small osteochondral injuries are noted involving posterior weightbearing portio n of medial femoral condyle and adjacent medial tibial plateau with a portion. No acute fracture or d islocation. Joint space: There is moderate knee joint fluid. No Chavis's cyst. Normal appearing synovial plicae are incidentally noted. IMPRESSION: 1. Moderate tricompartmental osteoarthritis and chondromalacia most notably in medial femoral tibial compartment as above. No fracture or dislocation. Moderate joint effusion, no gross loose bodies. 2. Peripheral displacement of medial meniscus with complex tear involving posterior horn of medial me niscus extending to both superior and inferior articulating surfaces. No focal lateral meniscal tear. 3. The cruciate ligaments are intact. Low-grade MCL and LCL sprain. Reviewed by: Martin Cardenas MD on 03/11/2023 4:16 PM PDT Approved by: Martin Cardenas MD on 03/11/2023 4:16 PM PDT Station ID: [id number]
== END 2023-03-11 10:25 | disposition home or self-care (01) ==
LOC: DI 10:24
PROVIDERS: ATTEND Internal Medicine
DX: M17.11 Unilateral primary osteoarthritis, right knee (principal); M94.261 Chondromalacia, right knee; M25.461 Effusion, right knee; S83.231A Complex tear of medial meniscus, current injury, right knee, initial encounter; S83.411A Sprain of medial collateral ligament of right knee, initial encounter; S83.421A Sprain of lateral collateral ligament of right knee, initial encounter

== ENCOUNTER 2023-05-16 14:35 | Outpatient (CLI) | payer MEDICARE, OTHER ==
[2023-05-16 14:57] LABS: BASOPHILS # (AUTO) 0.1 10^3/uL (0.0-0.1); EOSINOPHILS # (AUTO) 0.3 10^3/uL (0.0-0.7); EOSINOPHILS % (AUTO) 4.7 %; HCT - HEMATOCRIT 42.5 % (42.0-52.0); HGB - HEMOGLOBIN 14.4 g/dL (14.0-18.0); LYMPHOCYTES # (AUTO) 1.5 10^3/uL (1.5-3.5); LYMPHOCYTES % (AUTO) 21.3 %; MEAN CORPUSCULAR HGB CONC 33.9 g/dL (32.0-36.0); MEAN CORPUSCULAR VOLUME 97.3 fL (80.0-94.0); MEAN PLATELET VOLUME 10.1 fL (7.4-11.4); MONOCYTES # (AUTO) 0.7 10^3/uL (0.0-1.0); MONOCYTES % (AUTO) 10.5 %; NEUTROPHILS # (AUTO) 4.4 10^3/uL (1.5-6.6); NEUTROPHILS % (AUTO) 62.2 %; PLT - PLATELET COUNT 166 10^3/uL (130-450); RED BLOOD COUNT 4.37 10^6/uL (4.70-6.10); RED CELL DISTRIBUTION WIDTH 13.1 % (12.0-15.0)
[2023-05-16 15:16] LABS: BILIRUBIN,URINE NEGATIVE (NEGATIVE); GLUCOSE, URINE (UA) NEGATIVE (NEGATIVE); KETONES,URINE (UA) TRACE mg/dL (NEGATIVE); LEUKOCYTE ESTERASE, URINE NEGATIVE (NEGATIVE); NITRITE,URINE NEGATIVE (NEGATIVE); OCCULT BLOOD,URINE NEGATIVE (NEGATIVE); PROTEIN,URINE 30 mg/dL (NEGATIVE); UROBILINOGEN,URINE 2 E.U./dL (NORMAL)
[2023-05-16 15:24] LABS: CALCIUM 9.5 mg/dL (8.5-10.3); CREATININE 1.4 mg/dL (0.6-1.3); POTASSIUM 3.9 mmol/L (3.5-4.5)
[2023-05-16 15:33] LABS: CLARITY,URINE CLEAR (CLEAR)
[2023-05-16 16:21] LABS: BACTERIA,URINE None Seen /HPF (None Seen); MUCUS,URINE Moderate Strands; RBC,URINE 0-5 /HPF (0-5); SQUAMOUS EPITHELIAL CELL,UR NONE SEEN (<= Few); WBC,URINE 0-3 /HPF (0-3)
[2023-05-16 18:21] LABS: ESTIMATED AVERAGE GLUCOSE 114 mg/dL (70-100); HEMOGLOBIN A1c% 5.6 % (4.27-6.07)
== END 2023-05-16 14:36 | disposition home or self-care (01) ==
LOC: LAB 14:35
PROVIDERS: ATTEND Orthopaedic Surgery
DX: Z01.818 Encounter for other preprocedural examination (principal); R73.9 Hyperglycemia, unspecified; N39.0 Urinary tract infection, site not specified
CPT/HCPCS: 36415; 80048; 81001; 83036; 85025; 87086; 93005

== ENCOUNTER 2023-08-25 09:24 | Outpatient (CLI) | payer MEDICARE, OTHER ==
[2023-08-25 12:46] LABS: BASOPHILS # (AUTO) 0.1 10^3/uL (0.0-0.1); EOSINOPHILS # (AUTO) 0.4 10^3/uL (0.0-0.7); HCT - HEMATOCRIT 36.8 % (42.0-52.0); HGB - HEMOGLOBIN 12.3 g/dL (14.0-18.0); LYMPHOCYTES # (AUTO) 1.7 10^3/uL (1.5-3.5); LYMPHOCYTES % (AUTO) 21.6 %; MEAN CORPUSCULAR HEMOGLOBIN 32.5 pg (27.0-31.0); MEAN CORPUSCULAR HGB CONC 33.4 g/dL (32.0-36.0); MEAN CORPUSCULAR VOLUME 97.1 fL (80.0-94.0); MEAN PLATELET VOLUME 10.5 fL (7.4-11.4); MONOCYTES # (AUTO) 0.8 10^3/uL (0.0-1.0); MONOCYTES % (AUTO) 10.6 %; NEUTROPHILS # (AUTO) 4.9 10^3/uL (1.5-6.6); NEUTROPHILS % (AUTO) 61.4 %; PLT - PLATELET COUNT 235 10^3/uL (130-450); RED BLOOD COUNT 3.79 10^6/uL (4.70-6.10); RED CELL DISTRIBUTION WIDTH 12.6 % (12.0-15.0)
[2023-08-25 13:03] LABS: ALBUMIN 3.5 g/dL (3.2-5.5); ALBUMIN/GLOBULIN RATIO 1.3 (1.0-2.2); ALKALINE PHOSPHATASE 71 IU/L (42-121); ALT ALANINE AMINOTRANSFERASE 10 IU/L (10-60); AST ASPARTATE AMINOTRANSFERASE 14 IU/L (10-42); BILIRUBIN,TOTAL 0.6 mg/dL (0.2-1.0); BUN - BLOOD UREA NITROGEN 15 mg/dL (6-20); CALCIUM 9.6 mg/dL (8.5-10.3); CARBON DIOXIDE - CO2 29 mmol/L (21-32); CHLORIDE 105 mmol/L (101-111); CHOL/HDL RATIO 2.5 (<5.0); CHOLESTEROL 119 mg/dL; CREATININE 1.2 mg/dL (0.6-1.3); GFR - MDRD 58 (>89); GLUCOSE 118 mg/dL (74-104); HDL CHOLESTEROL 47 mg/dL; LDL CHOLESTEROL,CALCULATED 46 mg/dL; POTASSIUM 3.7 mmol/L (3.5-4.5); SODIUM 140 mmol/L (135-145); TOTAL PROTEIN 6.1 g/dL (6.4-8.9); TRIGLYCERIDES 129 mg/dL (48-352); VLDL CHOLESTEROL 26 mg/dL
[2023-08-25 13:22] LABS: ESTIMATED AVERAGE GLUCOSE 117 mg/dL (70-100); HEMOGLOBIN A1c% 5.7 % (4.27-6.07)
[2023-08-25 13:24] LABS: CREATININE,URINE 151.5 mg/dL; MICROALBUM/CREATININE RATIO,UR 124.8 ug/mg (<30.0); MICROALBUMIN,URINE 18.9 mg/dL
== END 2023-08-25 09:25 | disposition home or self-care (01) ==
LOC: LAB.N 09:24
PROVIDERS: ATTEND Internal Medicine
DX: I10 Essential (primary) hypertension (principal); I25.10 Atherosclerotic heart disease of native coronary artery without angina pectoris; R73.03 Prediabetes
CPT/HCPCS: 36415; 80053; 80061; 82043; 82570; 83036; 83721; 85025

== ENCOUNTER 2023-12-02 10:45 | Outpatient (CLI) | payer MEDICARE, OTHER ==
[2023-12-02 17:48] LABS: BASOPHILS # (AUTO) 0.1 10^3/uL (0.0-0.1); BASOPHILS % (AUTO) 0.8 %; EOSINOPHILS # (AUTO) 0.5 10^3/uL (0.0-0.7); EOSINOPHILS % (AUTO) 6.3 %; HGB - HEMOGLOBIN 12.7 g/dL (14.0-18.0); LYMPHOCYTES # (AUTO) 1.5 10^3/uL (1.5-3.5); LYMPHOCYTES % (AUTO) 19.4 %; MEAN CORPUSCULAR HEMOGLOBIN 32.6 pg (27.0-31.0); MEAN CORPUSCULAR HGB CONC 32.6 g/dL (32.0-36.0); MEAN PLATELET VOLUME 10.6 fL (7.4-11.4); NEUTROPHILS # (AUTO) 4.8 10^3/uL (1.5-6.6); NEUTROPHILS % (AUTO) 61.1 %; PLT - PLATELET COUNT 234 10^3/uL (130-450); RED CELL DISTRIBUTION WIDTH 13.9 % (12.0-15.0); WHITE BLOOD COUNT 7.9 x10^3/uL (4.8-10.8)
[2023-12-02 18:04] LABS: CRP - C-REACTIVE PROTEIN 1.3 mg/dL (<0.5)
== END 2023-12-02 10:46 | disposition home or self-care (01) ==
LOC: LAB.N 10:45
PROVIDERS: ATTEND Internal Medicine
DX: M79.10 Myalgia, unspecified site (principal)
CPT/HCPCS: 36415; 82550; 85025; 85651; 86140